=== PATIENT | female | born 1975 | race Asian ===

== ENCOUNTER 2020-11-04 19:58 | Emergency (ER) | payer OTHER ==
[2020-11-04 20:14] VITALS: BP 148/80; PULSE 88; TEMP 98.2; BMI 24.5
[2020-11-04] MEDS ORDERED: ACETAMINOPHEN 500 MG TABLET (FP) PO ONE (20:17)
[2020-11-04] MEDS ORDERED: ACETAMINOPHEN 325 MG TABLET (FP) ONE (20:41)
== END 2020-11-04 20:46 | disposition home or self-care (01) ==
LOC: JERFT 19:58
DX: N64.4 Mastodynia (principal); Z04.1 Encounter for examination and observation following transport accident
CPT/HCPCS: 99284-25